=== PATIENT | female | born 1970 | race Caucasian/White ===

== ENCOUNTER 2019-05-09 12:57 | Emergency (ER) | payer MEDICAID ==
[2019-05-09] MEDS ORDERED: Ketorolac 60 MG/2 ML SDV IM ONE (13:37)
--- NOTE | 2019-05-09 13:40 | EDM.PDOC ---
ED HPI GENERAL MEDICAL PROBLEM - General Chief Complaint: Lower Extremity Injury/Pain Stated Complaint: LEFT ANKLE INJURY Time Seen by Provider: 05/09/19 13:35 Source of Information: Reports: Patient, Family, RN Notes Reviewed History Limitations: Reports: No Limitations - History of Present Illness INITIAL COMMENTS - FREE TEXT/NARRATIVE: 48-year-old female presents emergency department today with a left ankle injury , she injured herself last night when she accidentally fell off a stepstool she is unsure of the mechanism of action she cannot bear weight she treated with ice right away but she does have edema as well as ecchymosis around the ankle Left Ankle Pain Score (Numeric/FACES): 4 - Related Data Allergies Allergy/AdvReac Type Severity Reaction Status Date / Time No Known Allergies Allergy Verified 05/09/19 13:16 Home Meds: Home Meds ClonazePAM [KlonoPIN] 0.5 mg PO ASDIRECTED PRN 05/09/19 [History] Levothyroxine [Synthroid] 50 mcg PO DAILY 05/09/19 [History] Sertraline [Zoloft] 150 mg PO DAILY 05/09/19 [History] buPROPion [Wellbutrin] 100 mg PO BEDTIME 05/09/19 [History] buPROPion [Wellbutrin] 200 mg PO DAILY 05/09/19 [History] Past Medical History Cardiovascular History: Reports: High Cholesterol 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 FLOOR SWEEPER History: oviarian polyp removed Endocrine/Metabolic History: Reports: Hypothyroidism - Past Surgical History Oncologic Surgical History: Reports: Lumpectomy Social & Family History - Tobacco Use Smoking Status *Q: Never Smoker - Caffeine Use Caffeine Use: Reports: Coffee - Recreational Drug Use Recreational Drug Use: No Review of Systems - Review of Systems Review Of Systems: See Below Constitutional: Reports: No Symptoms Musculoskeletal: Reports: Joint Pain (Ankle pain) Skin: Reports: Bruising ED EXAM, GENERAL - Physical Exam Exam: See Below Free Text/Narrative:: Examination of the left ankle I do appreciate significant edema predominantly on the lateral malleolus there is bruising around the lateral malleolus she will not tolerate much of an exam secondary to pain pedal pulses +2 she cannot bear weight Course - Vital Signs Last Recorded V/S: Last Vital Signs Temp 98.2 F 05/09/19 13:25 Pulse 78 05/09/19 13:15 Resp 17 05/09/19 13:15 BP 145/91 H 05/09/19 13:15 Pulse Ox 96 05/09/19 13:15 - Orders/Labs/Meds Meds: Medications Discontinued Medications Generic Name Dose Route Start Last Admin Trade Name [place] PRN Reason Stop Dose Admin Fentanyl 50 mcg 05/09/19 14:48 05/09/19 14:51 Sublimaze IM 05/09/19 14:49 50 mcg ONETIME ONE Administration Ketorolac Tromethamine 60 mg 05/09/19 13:37 05/09/19 13:41 Toradol IM 05/09/19 13:38 60 mg ONETIME ONE Administration - Re-Assessments/Exams Free Text/Narrative Re-Assessment/Exam: 05/09/19 14:49 Discussed the case with Dr. Diaz [place] [address] scan posterior splint with extra padding crutches follow-up in his clinic in 1 week Departure - Departure Time of Disposition: 16:25 Disposition: Home, Self-Care 01 Condition: Fair Clinical Impression: Calcaneus fracture, left Qualifiers: Encounter type: initial encounter Calcaneus location: body Fracture type: closed Fracture alignment: displaced Qualified Code(s): S92.012A - Displaced fracture of body of left calcaneus, initial encounter for closed fracture - Discharge Information Referrals: PCP,None [Primary Care Provider] - Forms: ED Department Discharge Additional Instructions: Please call to the Ortho clinic tomorrow morning for an appointment time in [address] Diaz use of Percocet as needed for pain control continue to use the crutches and nonweightbearing Sepsis Event Note - Evaluation Sepsis Screening Result: No Definite Risk - Focused Exam Vital Signs: Vital Signs Temp Pulse Resp BP Pulse Ox 05/09/19 13:25 98.2 F 05/09/19 13:15 78 17 145/91 H 96 05/09/19 13:11 78 17 145/91 H 96 Date Exam was Performed: 05/09/19 Time Exam was Performed: 16:23 - Assessment/Plan Plan: Assessment Acuity = acute Site and laterality = left calcaneus fracture closed Etiology = secondary to trauma Manifestations = none Location of injury = Home Lab values = CT he describes a fracture as well as plain film it is comminuted displaced and depressed Plan Discussed case Dr. Quach he will see her in 1 week she is placed in a posterior splint and crutches Percocet 5/325 1 tab p.o. 3 times daily PRN total #20 This note was dictated using [employer] recognition software please call with any questions on syntax or grammar.
--- NOTE | 2019-05-09 14:15 | CR ---
Ankle Min 3V Lt CLINICAL HISTORY: Fall, injury FINDINGS: There is a minimally displaced fracture in the coronal plane through the posterior third of the calcaneus with some flattening of the angle. Talus appears intact. Ankle mortise is symmetric. Impression: Calcaneal fracture
[2019-05-09] MEDS ORDERED: fentaNYL 100 MCG/2 ML SDV IM ONE (14:48)
--- NOTE | 2019-05-09 16:03 | CRLCT ---
HISTORY: Fall. Calcaneus fracture. TECHNIQUE: CT left foot without contrast. COMPARISON: Radiographs same day. FINDINGS: Acute comminuted fracture of the calcaneus. Fracture involves the posterior facet with a sagittal fracture plane dividing the posterior facet into medial and lateral halves. Fragment comprising the lateral half of the posterior facet is impacted and rotated. Relationship between the medial aspect of the posterior facet and the posterior facet of the talus is maintained. Fracture involves the anterior aspect of the sustentaculum yolande. Middle facet articular surface is intact. Up to 7 mm medial to lateral displacement between the major calcaneal tuberosity fragment and the fragment containing the medial half of the posterior facet in the sustentaculum yolande (axial series 3, image 50). Fracture extends obliquely through the anterior aspect of the calcaneus extending just lateral to the articular surface for the cuboid. Articular surface for the cuboid is intact. No talus fracture. No fracture in the midfoot or forefoot. Ankle mortise is congruent. No dislocation. 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 Severe degenerative changes at the articulations of the hallux sesamoids and 1st metatarsal. Acute hemorrhage and small amount of extraosseous marrow fat in the flexor hallucis longus tendon sheath. Fat stranding in the hindfoot and midfoot. IMPRESSION: 1. Acute comminuted, displaced, and depressed fracture of the calcaneus. 2. 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 Severe degenerative changes at the articulations of the hallux sesamoids and 1st metatarsal. Please note that all CT scans at this facility use dose modulation, iterative reconstruction, and/or weight-based dosing when appropriate to reduce radiation dose to as low as reasonably achievable. Dictated by Joseph El MD @ May 09 2019 3:46PM Signed by Dr. Joseph El @ May 09 2019 4:03PM
== END 2019-05-09 17:00 | disposition home or self-care (01) ==
LOC: JP.ED 12:57
DX: S92.012A Displaced fracture of body of left calcaneus, initial encounter for closed fracture (principal); E03.9 Hypothyroidism, unspecified; Z79.899 Other long term (current) drug therapy; W08.XXXA Fall from other furniture, initial encounter
CPT/HCPCS: 29515; 73610; 73700; 96372; 99283; J1885; J3010

== ENCOUNTER 2019-05-25 06:35 | Day surgery (SDC) | payer MEDICAID ==
[2019-05-25] MEDS ORDERED: Bupivacaine 0.5% 30 ML SDV ONE (06:36)
[2019-05-25] MEDS ORDERED: Lactated Ringers 1,000 ML IV SCH (06:45)
[2019-05-25] MEDS ORDERED: Nozin Nasal Sanitizer NASBOTH ONE (06:45)
[2019-05-25] MEDS ORDERED: ceFAZolin 2 GM in Premix Bag 1 BAG IV ONE (06:45)
[2019-05-25] MEDS ORDERED: fentaNYL 250 MCG/5 ML SDV ONE (07:15)
[2019-05-25] MEDS ORDERED: Ondansetron 4 MG/2 ML SDV ONE (07:15)
[2019-05-25] MEDS ORDERED: Dexamethasone 4 MG/ML SDV ONE (07:15)
[2019-05-25] MEDS ORDERED: Neostigmine Methylsulfate 1 MG/ML 5 ML Syringe ONE (07:15)
[2019-05-25] MEDS ORDERED: Propofol 200 MG/20 ML SDV ONE (07:15)
[2019-05-25] MEDS ORDERED: Rocuronium 50 MG/5 ML Vial ONE (07:15)
[2019-05-25] MEDS ORDERED: Succinylcholine 200 MG/10 ML MDV ONE (07:15)
[2019-05-25] MEDS ORDERED: Glycopyrrolate 0.2 MG/ML 5 ML MDV ONE (07:15)
[2019-05-25] MEDS ORDERED: Lactated Ringers 1,000 ML ONE (09:13)
[2019-05-25] MEDS ORDERED: fentaNYL 100 MCG/2 ML SDV ONE (09:39)
[2019-05-25] MEDS ORDERED: hydrOXYzine HCL 100 MG/2 ML SDV IM ONE (10:46)
[2019-05-25] MEDS ORDERED: fentaNYL 100 MCG/2 ML SDV IVPUSH ONE (10:46)
[2019-05-25] MEDS ORDERED: Acetaminophen/oxyCODONE 325-5 MG Tab PO PRN ×2 (11:24→11:40)
[2019-05-25] MEDS ORDERED: Ketorolac 60 MG/2 ML SDV IM ONE (14:06)
--- NOTE | 2019-05-25 18:25 | OR ---
DATE OF PROCEDURE: 05/25/2019 SURGEON: Jem Diaz MD PREOPERATIVE DIAGNOSIS: Comminuted intra-articular left calcaneus fracture. POSTOPERATIVE DIAGNOSIS: Comminuted displaced intra-articular left calcaneus fracture. PROCEDURE: Open reduction and internal fixation of left calcaneus. ANESTHESIA: General. INDICATIONS: Raquel is a 48-year-old female who sustained a fall directly onto her left heel resulting in an intra-articular fracture with depression and displacement. She now presents for open reduction and internal fixation. It has been approximately 2 weeks since the injury and her swelling has subsided significantly. Risks, benefits, and potential complications of the procedure were discussed with the patient and her . DESCRIPTION OF PROCEDURE: After adequate anesthesia was obtained, the patient was placed in lateral decubitus position and secured with a aldana-bag positioner. Tourniquet was placed about the left leg. Left leg was then prepped and draped in a sterile fashion. Leg was held in elevation and tourniquet inflated to 300 mmHg pressure. Extensile lateral incision was planned and carried out sharply dissecting directly down onto bone of the calcaneus and raising a full-thickness subperiosteal flap. Peroneal tendons were identified. Sulma was divided to allow mobilization. Once the flap was mobilized, a K-wire was advanced into the shaft of the fibula and bent for a retractor. A 2nd K-wire was placed into the talar neck and again used for retractor. Fracture of the lateral wall was identified. This fragment was elevated off the depressed articular fragment and kept moist on the back table. The depressed articular fragment was significantly impacted and took a bit of work to free it to allow reduction. A Shantz screw was placed into the posterior aspect of the tuberosity and used to manipulate the fracture. Traction was applied. Kremlin elevator was placed across the fracture into the medial wall and with traction and mobilization with the Schanz screw as a joystick, reduction of the medial wall was attempted. The medial fragments still overlapped so a lamina chemists was used to obtain length. A K- wire was than placed along the medial side. The articular fragment was then reduced into position and held with a K-wire and position was confirmed using fluoroscopy. Once the height and position of the fracture was re- established, a significant cavity was left within the body, and this was packed with crushed cancellous bone. The lateral wall fragment was then replaced and a calcaneal plate was selected. This was pinned in position and the position was confirmed with fluoroscopy. This was then secured with the 2.7 mm locking screws. Once fixation had been obtained, the wound was irrigated. The retracting pins were removed along with the temporary K-wires for fixation. The flap was then repaired full-thickness with 0 Vicryl in interrupted fashion using pop-off sutures. Once all sutures had been placed with good bite of the periosteum, the sutures were tied, and this provided excellent approximation of the flap. A running 3-0 Monocryl was then placed subcuticularly. Steri-Strips were applied. Wound was infiltrated with Marcaine and a sterile dressing was placed. The patient was then placed into a well-padded plaster AO splint in neutral position. She tolerated the procedure well. There were no complications. She was taken from the operating room in stable condition. Jem Diaz MD /[id number] MTDOh
== END 2019-05-25 14:47 | disposition home or self-care (01) ==
LOC: JP.SDS 06:35
PROVIDERS: ATTEND Specialist
DX: S92.062A Displaced intraarticular fracture of left calcaneus, initial encounter for closed fracture (principal); E78.00 Pure hypercholesterolemia, unspecified; E03.9 Hypothyroidism, unspecified; F41.9 Anxiety disorder, unspecified; Z79.899 Other long term (current) drug therapy; W19.XXXA Unspecified fall, initial encounter
CPT/HCPCS: 36415; 76000; 80048; 81025; 85027; A9270-GY; C1713; J0330; J0690; J1100; J1885; J2405; J2704; J2710; J3010; J3410; J3490; J7120

== ENCOUNTER 2020-02-20 07:05 | Day surgery (SDC) | payer MEDICAID ==
[~2020-02-20 07:05] MED LIST: Bupivacaine 0.5% 30 ML SDV ONE; Lidocaine 1% 50 ML MDV ONE
[2020-02-20] MEDS ORDERED: Nozin Nasal Sanitizer NASBOTH ONE (08:00)
[2020-02-20] MEDS ORDERED: Lactated Ringers 1,000 ML IV SCH (08:15)
[2020-02-20] MEDS ORDERED: ceFAZolin 1 GM Vial IV ONE (08:30)
[2020-02-20] MEDS ORDERED: ceFAZolin 1 GM Vial IM ONE (08:30)
[2020-02-20] MEDS ORDERED: ceFAZolin 1 GM in Premix Bag 1 BAG IV ONE (08:30)
[2020-02-20] MEDS ORDERED: Succinylcholine 200 MG/10 ML MDV ONE (08:42)
[2020-02-20] MEDS ORDERED: Propofol 200 MG/20 ML SDV ONE ×2 (08:42→09:00)
[2020-02-20] MEDS ORDERED: Dexamethasone 4 MG/ML SDV ONE (08:42)
[2020-02-20] MEDS ORDERED: Glycopyrrolate 0.2 MG/ML 5 ML MDV ONE (08:42)
[2020-02-20] MEDS ORDERED: Rocuronium 50 MG/5 ML Vial ONE (08:42)
[2020-02-20] MEDS ORDERED: fentaNYL 250 MCG/5 ML SDV ONE (08:42)
[2020-02-20] MEDS ORDERED: Neostigmine Methylsulfate 1 MG/ML 5 ML Syringe ONE (08:42)
[2020-02-20] MEDS ORDERED: Ondansetron 4 MG/2 ML SDV ONE (08:42)
[2020-02-20] MEDS ORDERED: fentaNYL 100 MCG/2 ML SDV ONE (09:12)
[2020-02-20] MEDS ORDERED: Lactated Ringers 1,000 ML ONE (10:24)
[2020-02-20] MEDS ORDERED: Ketorolac 60 MG/2 ML SDV ONE (10:37)
[2020-02-20] MEDS ORDERED: ePHEDrine 50 MG/ML SDV ONE (11:54)
[2020-02-20] MEDS ORDERED: Acetaminophen/oxyCODONE 325-5 MG Tab PO PRN (11:56)
--- NOTE | 2020-03-05 14:15 | OR ---
DATE OF PROCEDURE: 02/20/2020 SURGEON: Jem Diaz MD PREOPERATIVE DIAGNOSES: 1. Painful hardware, left calcaneus. 2. Post-traumatic arthritis, subtalar joint. POSTOPERATIVE DIAGNOSES: 1. Painful hardware, left calcaneus. 2. Post-traumatic arthritis, subtalar joint. PROCEDURES: 1. Removal of hardware, left calcaneus. 2. Subtalar arthrodesis. WELDING SPECIALIST: MARCO Santos ANESTHESIA: General. INDICATIONS: Raquel is a 49-year-old female with a history of comminuted displaced intra- articular fracture of the left calcaneus. She previously underwent open reduction and internal fixation. She has gone on to heal the fracture and is having persistent pain in the lateral aspect of the heel and calcaneus as well as with weightbearing. Some impingement of the peroneal tendons and tenderness over the hardware. She wishes to have the hardware removed. We had a discussion regarding post-traumatic arthritis and the need for subtalar arthrodesis, which would be likely at some point in the future if she did not proceed with it now. Due to the evidence of some post-traumatic changes, pain with weightbearing and increased likelihood of surgical wound complications with multiple surgeries in this area. A decision was made to proceed with the arthrodesis at this time. Risks, benefits, potential complications were discussed. DESCRIPTION OF PROCEDURE: After adequate anesthesia was obtained, a tourniquet was placed about the left upper thigh. Left leg was prepped and draped in a sterile fashion with the patient in a lateral decubitus position and secured with the beanbag positioner. Leg was prepped and draped in a sterile fashion. Exsanguinated and tourniquet inflated to 300 mmHg pressure. The patient had a fairly significant keloid of the scar in the lateral aspect of the heel and this was excised. Incision carried down to the calcaneus and a full-thickness flap was elevated exposing the calcaneal plate. Plate was cleared of scar tissue and screws were removed without difficulty. The plate was then removed. A K-wire was placed into the fibula and bent and used as a retractor. A 2nd K-wire was placed into the talar neck, again bent and used as retraction. Subtalar joint was identified. Capsule was excised sharply and using a combination of curettes, rongeurs, and osteotomes, articular cartilage was removed from both surfaces of the subtalar joint. It was then thoroughly irrigated. After the decortication, crushed cancellous bone graft was packed into some of the recesses in the joint. The joint was then compressed and held in just a slight valgus position and a guide pin was placed through a percutaneous stab wound in the heel driven up through the body of the calcaneus and into the talar neck. Position was confirmed using fluoroscopy. This was measured and then drilled. A 7.3 partially threaded cannulated screw was then placed over the guide pin. This had excellent purchase and compression. A guide pin was removed and final position of the screw was assessed with fluoroscopy. Good compression was obtained along the subtalar joint. Additional bone graft was packed in along the lateral edge of the joint. Wound was irrigated. It was then closed using 2-0 Vicryl in the dermal layer and 3- 0 nylon in interrupted mattress fashion on the skin. This provided excellent approximation without tension on the incision. The tourniquet was released and a well-padded light compression dressing was applied. The patient tolerated the procedure very well. There were no complications, taken from the operating room in stable condition. Jem Diaz MD /[id number] MELI
== END 2020-02-20 13:20 | disposition home or self-care (01) ==
LOC: JP.SDS 07:05
PROVIDERS: ATTEND Specialist
DX: M19.172 Post-traumatic osteoarthritis, left ankle and foot (principal); T84.84XA Pain due to internal orthopedic prosthetic devices, implants and grafts, initial encounter
CPT/HCPCS: 20680; 28725; 36415; 76000; 80053; 81025; 85027; A9270; C1713; C1769; J0330; J0690; J1100; J1885; J2001; J2405; J2704; J2710; J3010; J3490; J7120